=== PATIENT | male | born 1955 | race Caucasian/White ===

== ENCOUNTER → 2016-10-26 | Outpatient (REF) ==
[~2016-10-26] MED LIST: ADVICOR PO; ASPIRIN E.C. 8181 MG PO; COLSALIDE IMPR0.6 MG PO; FEXOFENADINE PO; LEVOTHYROXINE0.05 MG PO; MULTIPLE VITAMI1 CAP PO; NIZATIDINE150 MG PO; OMEGA-3 1000 MG1 CAP PO; TUMS E-X750 MG PO; ULTRACET TABL1 UDTAB PO; VITAMIN C PO; VITAMIN D32000 IU PO
[2016-10-26 12:17] LABS: THYROID STIMULATING HORMONE 2.82 uIU/mL (0.465-4.680)
[2016-10-26 15:51] LABS: PSA-TOTAL 1.54 ng/mL (0-4)
== END ==
LOC: ZLAB.WCH 08:54
PROVIDERS: Family Medicine
DX: Z01.89 Encounter for other specified special examinations (principal)
CPT/HCPCS: G0103

== ENCOUNTER → 2017-02-22 | Outpatient (REF) | LOC: ZLAB.WCH 17:58 → ZCOL.LAB 17:58 | DX: Z01.89 Encounter for other specified special examinations (principal) ==

== ENCOUNTER → 2017-08-23 | Outpatient (REF) ==
[2017-08-23 18:48] LABS: THYROID STIMULATING HORMONE 2.32 uIU/mL (0.465-4.680)
== END ==
LOC: ZLAB.WCH 18:01
PROVIDERS: Nurse Practitioner Family
DX: Z01.89 Encounter for other specified special examinations (principal)

== ENCOUNTER → 2017-11-10 | Outpatient (REF) | LOC: ZLAB.WCH 16:40 | DX: Z01.89 Encounter for other specified special examinations (principal) ==

== ENCOUNTER 2023-05-17 07:31 | Day surgery (SDC) | payer MEDICARE ==
[2023-05-17] VITALS (9 sets, daily range): BP systolic 111–127; BP diastolic 73–89; PULSE 65–80; TEMP 98.1
[~2023-05-17] VITALS: Ht 185.5 cm; Wt 111.4 kg
[~2023-05-17 07:31] MED LIST changes: +EUTHYROX88 MCG PO; +IMDUR 60MG60 MG/TAB PO; -LEVOTHYROXINE0.05 MG PO; +PROTONIX 40MG T40 MG PO
[2023-05-17 08:23] LABS: HEMATOCRIT 45.6 % (42.0-52.0); HEMOGLOBIN 15.6 g/dl (13.5-18.0); MEAN CELL VOLUME 89 fl (80.0-100.0); MEAN CORPUSCULAR HEMOGLOBIN 30 pg (27-31); MEAN CORPUSCULAR HGB CONC 34 g/dl (33.0-37.0); MEAN PLATELET VOLUME 9.3 fl (7.4-10.4); PLATELET COUNT 187 K/mm3 (130-400); RED BLOOD COUNT 5.13 M/mm3 (4.20-5.60); REDCELL DISTRIBUTION WIDTH-CV 13.1 % (11.5-14.5)
[2023-05-17 08:27] LABS: INR 1.1 (0.8-3.0); PROTHROMBIN TIME 12.2 SECONDS (9.7-12.8)
[2023-05-17 08:29] LABS: PARTIAL THROMBOPLASTIN TIME 36.7 SECONDS (26.0-37.0)
[2023-05-17 08:36] LABS: CALCIUM 9.9 mg/dL (8.4-10.2); CREATININE, serum 0.99 mg/dL (0.72-1.25); POTASSIUM 4.5 mmol/L (3.5-4.5)
[2023-05-17] MEDS ORDERED: TYLENOL 500MG500 MG PO (08:49)
[2023-05-17] MEDS ORDERED: PROAIR HFA0.09 MG/AC IH (08:50)
[2023-05-17] MEDS ORDERED: ANTACID500 M1 PO (08:51)
[2023-05-17] MEDS ORDERED: ZYLOPRIM 300MG300 MG PO (08:51)
[2023-05-17] MEDS ORDERED: LIPITOR 10MG10 MG PO (08:52)
[2023-05-17] MEDS ORDERED: ZYRTEC 10MG10 MG PO (08:52)
[2023-05-17] MEDS ORDERED: DULCOLAX STOOL100 MG PO (08:53)
[2023-05-17] MEDS ORDERED: FLAXSEED OIL1000 MG PO (08:53)
[2023-05-17] MEDS ORDERED: MUCUS RELIEF400 M1 PO (08:54)
[2023-05-17] MEDS ORDERED: GENTEALSEVERE OP (08:54)
[2023-05-17] MEDS ORDERED: FLONASEALLERGY NS (08:54)
[2023-05-17] MEDS ORDERED: JANUVIA50 MG PO (08:55)
[2023-05-17] MEDS ORDERED: MELATONIN ER10 MG PO (08:56)
[2023-05-17] MEDS ORDERED: GLUCOPHAGE1000 MG PO (09:19)
[2023-05-17] MEDS ORDERED: VITAMIN FLUSH-F1 CAP PO (09:20)
[2023-05-17] MEDS ORDERED: TRULICITY3 MG/0.5 M SQ (09:20)
[2023-05-17] MEDS ORDERED: VITAMIND3 5000 PO (09:21)
[2023-05-17] MEDS ORDERED: VTAMINC250TA PO (09:21)
--- NOTE | 2023-05-17 10:27 | NUR ---
Refer to [facility] report for procedural sedation/notes
--- NOTE | 2023-05-17 15:09 | NUR ---
PT TOLERATED RECPOVERY PERIOD WELL. PT WAS ASSISTED TO MAIN LOBBY FOLLOWING RECOVERY AND RIGHT RADIAL DRESSING WAS CLEAN DRY AND INTACT UPON DISCHARGE. RIGHT ARM REMAINED SOFT AND FREE FROM SIGNS OF HEMATOMA. PT VS REMAINED WITHIN NORMAL LIMITS AND PT TOLERATED PO FOOD AND FLUIDS DURING RECOVERY. PT VERBALIZED UNDERSTANDING OF DISCHARGE INSTRUCTIONS AND WAS FREE FROM ACUTE CONCERNS AND COMPLAINTS UPON DISCHARGE.
== END 2023-05-17 15:11 | disposition home or self-care (01) ==
LOC: COL.CAR 07:31
PROVIDERS: Internal Medicine Cardiovascular Disease
DX: I20.0 Unstable angina (principal); I45.10 Unspecified right bundle-branch block; R07.89 Other chest pain; R06.00 Dyspnea, unspecified; R06.02 Shortness of breath; R94.39 Abnormal result of other cardiovascular function study; E66.9 Obesity, unspecified; Z87.891 Personal history of nicotine dependence
CPT/HCPCS: J1644; Q9967